=== PATIENT | male | born 1970 | race Caucasian/White ===

== ENCOUNTER 2021-01-05 15:11 | Emergency (ER) | payer MEDICARE ==
[~2021-01-05] VITALS: Ht 180 cm; Wt 80.0 kg
--- NOTE | 2021-01-05 15:59 | ED General ---
General Chief Complaint: Bite-Animal/Human/Insect Stated Complaint: CAT SCRATCH/NEEDS RABIES VACCINE Nursing Triage Note: PT STATES BEING SCRATCHED BY AN UNKNOWN CAT ABOUT A WEEK AGO Nursing Sepsis Screen: No Definite Risk Source of Information: Patient Exam Limitations: No Limitations History of Present Illness Date Seen by Provider: Jan 05, 2021 Time Seen by Provider: 15:31 Initial Comments This 50-year-old gentleman presents to the emergency room initially requesting rabies vaccination due to a scratch caused by an unknown cat about a week ago. The last couple nights he said he has felt chilled. Vital signs are stable at this time. Patient states that he plans to travel internationally in the near future and would like preexposure rabies vaccination after I explained to that cat scratches do not require rabies vaccination. 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 His stories are not well corroborated. Review of his chart notes he has a history of schizoaffective disorder and work-ups ordered by the psychiatry team. He has a well-healing abrasion to the right wrist but no lymphadenopathy or other evidence of infection on exam. Patient also has various musculoskeletal complaints, none of which he thinks need to be addressed urgently. Allergies and Home Medications Allergies Coded Allergies: No Known Drug Allergies (Unverified , 01/05/21) Home Medications Azithromycin 250 Mg Tablet, 250 MG PO UD TAKE 2 TABLETS ON DAY ONE THEN TAKE 1 TABLET DAILY FOR FOUR MORE DAYS Prescribed by: APRIL BRYANT on 01/05/21 1611 Patient Home Medication List Home Medication List Reviewed: Yes Review of Systems Review of Systems Constitutional: see HPI EENTM: no symptoms reported Respiratory: no symptoms reported Cardiovascular: no symptoms reported Gastrointestinal: no symptoms reported Genitourinary: no symptoms reported Musculoskeletal: see HPI Skin: see HPI Psychiatric/Neurological: See HPI Hematologic/Lymphatic: No Symptoms Reported Immunological/Allergic: no symptoms reported Past Qggbouf-Pyxglj-Uupqns Hx Past Med/Social Hx: Reviewed and Corrections made Patient Social History Alcohol Use: Denies Use Smoking Status: Current Everyday Smoker Type Used: Cigarettes Recent Infectious Disease Expo: No Recent Hopitalizations: No Seasonal Allergies Seasonal Allergies: No Past Medical History Surgeries: Yes (COLONOSCOPY) Respiratory: No Cardiac: No Neurological: No Genitourinary: No Gastrointestinal: No Musculoskeletal: No Endocrine: No HEENT: Yes (RT EYE) Macular Degeneration Cancer: No Psychosocial: Yes (Schizoaffective disorder) Integumentary: No Physical Exam Vital Signs Vital Signs - First Documented 01/05/21 15:28 Temp 35.4 Pulse 80 Resp 18 B/P (MAP) 138/79 (98) Pulse Ox 98 O2 Delivery Room Air Capillary Refill : Less Than 3 Seconds Height, Weight, BMI Height: '" Weight: lbs. oz. kg; 24.00 BMI Method: General Appearance: No Apparent Distress, WD/WN HEENT: PERRL/EOMI, Normal ENT Inspection Neck: Normal Inspection Respiratory: Lungs Clear, Normal Breath Sounds, No Accessory Muscle Use Cardiovascular: Regular Rate, Rhythm, No Edema, No Murmur Extremity: Other (Minor scabbed abrasion on the right wrist. Otherwise no abnormalities identified) Neurologic/Psychiatric: Alert, Oriented x3, No Motor/Sensory Deficits, Normal Mood/Affect, supervising appraiser II-XII Norm as Tested, Other (See HPI) Skin: Normal Color, Warm/Dry, Other (See extremity exam) Lymphatic: No Adenopathy; No Axilla Node Tender (L), No Axilla Node Tender (R) Progress/Results/Core Measures Suspected Sepsis Recent Fever Within 48 Hours: No Infection Criteria Present: None New/Unexplained Altered Menta: No Sepsis Screen: No Definite Risk SIRS Temperature: Pulse: 80 Respiratory Rate: 18 Blood Pressure 138 /79 Mean: 98 Results/Orders My Orders Orders - APRIL NAILS MD Dipht,Pertuss(Acell),Tet Adult (Boostrix (01/05/21 16:15) Medications Given in ED Current Medications Medications Dose Ordered Sig/Valery Route Start Time Stop Time Status Last Admin Dose Admin Diphtheria/ Tetanus/Acell Pertussis 0.5 ml ONCE ONCE IM 01/05/21 16:15 01/05/21 16:16 DC 01/05/21 16:07 0.5 ML Vital Signs/I&O 01/05/21 01/05/21 15:28 16:24 Temp 35.4 35.4 Pulse 80 80 Resp 18 18 B/P (MAP) 138/79 (98) 138/79 (98) Pulse Ox 98 98 O2 Delivery Room Air Room Air Capillary Refill : Less Than 3 Seconds Blood Pressure Mean: 98 Progress Note : Progress Note Patient was offered tetanus booster as it has been about 5 years since his last tetanus. A azithromycin was prescribed to cover for cat scratch disease given his symptoms of chills after a cat scratch injury. I declined to provide any rabies vaccination at this time. If patient is truly going to travel overseas, he needs travel counseling and the full complement of vaccines recommended for that region. I advised him to contact the health department or his primary care provider regarding the best way to obtain a full complement of vaccinations and other prophylactic treatments recommended. Departure Impression Primary Impression: Cat scratch Additional Impression: Chills Disposition: HOME, SELF-CARE Condition: Stable Departure-Patient Inst. Decision time for Depature: 16:00 Referrals: NO,LOCAL PHYSICIAN (PCP/Family) Primary Care Physician Patient Instructions: Cat Scratch Disease Add. Discharge Instructions: Complete your antibiotics as prescribed. Seek advice from a primary care provider or the health department regarding preventive vaccination series for travel. There will be specific recommendatio ns for each region of the world regarding what vaccinations should be obtained. Call with questions or concerns. Return to care if you have worsening symptoms. All discharge instructions reviewed with patient and/or family. Voiced understanding. Scripts Azithromycin (Azithromycin) 250 Mg Tablet 250 MG PO UD, #6 TAB TAKE 2 TABLETS ON DAY ONE THEN TAKE 1 TABLET DAILY FOR FOUR MORE DAYS Prov: APRIL NAILS MD 01/05/21 APRIL NAILS MD Jan 05, 2021 15:59
[2021-01-05] MEDS ORDERED: AZIT250T12 PO (16:11)
[2021-01-05] MEDS ORDERED: TETANUS,DIPTH,PERTUSS P/F (BOOSTRIX) 0.5 ML VIAL IM ONE (16:15)
[2021-01-05 16:24] VITALS: BP 138/79
== END 2021-01-05 16:24 | disposition home or self-care (01) ==
LOC: EDUNIT# 15:11 → ER 15:15
DX: S60.811A Abrasion of right wrist, initial encounter (principal); R68.83 Chills (without fever); F17.210 Nicotine dependence, cigarettes, uncomplicated; Z23 Encounter for immunization; W55.03XA Scratched by cat, initial encounter
CPT/HCPCS: 90715; 99284